=== PATIENT | female | born 1985 | race Caucasian/White ===

== ENCOUNTER 2025-08-17 17:15 | Emergency (ER) | payer OTHER, SELFPAY ==
[2025-08-17 17:24] VITALS: BP 128/89
[2025-08-17 17:48] LABS: Hematocrit 35.3 % (37.0-47.0); Hemoglobin 11.1 g/dL (12.0-16.0); Mean Corp Hgb Conc. 31.4 g/dL (33.0-37.0); Mean Corpuscular Volume 72.5 fL (81.0-99.0); Nucleated Red Blood Cells % 0 %; Platelet Count 229 10^3/uL (130-400); Red Cell Dist. Width 17.3 % (11.5-14.5)
[2025-08-17 18:01] LABS: HCG, Serum Qualitative Screen Negative
[2025-08-17 18:08] LABS: Troponin I < 0.012 ng/ml
[2025-08-17 18:10] LABS: ALT (SGPT) 13 U/L (0-35); AST (SGOT) 20 U/L (14-36); Albumin 3.8 g/dl (3.5-5.0); Alkaline Phosphatase 44 U/L (38-126); Blood Urea Nitrogen 6 mg/dl (7-17); Calcium 8.7 mg/dl (8.4-10.2); Carbon Dioxide 24 mmol/L (22-30); Chloride 105 mmol/L (98-107); Glucose 98 mg/dl (70-99); Lipase 99 U/L (23-300); Potassium 4.1 mmol/L (3.5-5.1); Sodium 133 mmol/L (135-145); Total Protein 6.9 g/dl (6.3-8.2); eGFR > 60.00
[2025-08-17 19:50] LABS: Urine Character Clear (Clear)
[2025-08-17 20:02] LABS: Urine Red Blood Cell 30-40 /HPF (0-2); Urine White Cell 0-2 /HPF (0-5)
[2025-08-17] MEDS: ZOFRAN 4 MG IV (20:47)
[2025-08-17] MEDS: NSS 1000 IV (20:48)
[2025-08-17 20:52] VITALS: BMI 26.9
[2025-08-17 20:55] VITALS: BP 103/62
[2025-08-17 21:13] LABS: COVID-19 Antigen Negative (Negative)
--- NOTE | 2025-08-17 23:24 | ED.GENMED ---
History of Present Illness
<Bekcy Diaz NP - Last Filed: 08/19/25 16:58>
General
Chief Complaint: Abdominal Symptoms
Source: patient
Exam Limitations: none
Time Seen by Provider: 08/17/25 19:29
Nursing documentation reviewed up to this point in time: agreed with
History of Present Illness
History of Present Illness:
Patient to the emergency department with complaint of lower abdominal pain and diarrhea. States her symptoms started approximately 1 week ago. She reports some improvement over the following days however last night her symptoms returned. She
denies fever or chills but reports night sweats and bodyaches. Brought to the emergency department by family for evaluation.
Past History
<Becky Diaz NP - Last Filed: 08/19/25 16:58>
Past History
ED Past Medical History: None
ED Past Surgical History: None
Social History
Tobacco: Non-smoker (Hygienist)
Alcohol: None
Drug: None
Personal:
Living: with family
Employment: Employed
Family History
Family History: Negative Early CAD
Review of Systems
<Becky Diaz NP - Last Filed: 08/19/25 16:58>
Review of Systems
Allergies reviewed?: Yes
All Other Systems: ROS reviewed and negative except as documented in HPI and ROS
Constitutional: Reports no symptoms
EENT: Reports no symptoms
Respiratory: Reports no symptoms
Cardiac: Reports no symptoms
ABD/GI: Reports abdominal pain, nausea and diarrhea
: Reports no symptoms
Musculoskeletal: Reports no symptoms
Skin: Reports no symptoms
Neurological: Reports weakness
Psychiatric: Reports no symptoms
Phy Exam
<Becky Diaz NP - Last Filed: 08/19/25 16:58>
General Physical Exam
General Presentation: mild distress
General age: appears stated age
General Skin: warm and dry
General Habitus: normal
Pulmonary Exam
Pulmonary Exam: lungs clear and no respiratory distress
Gastrointestinal Exam
Gastrointestinal Exam: normal bowel sounds, non tender, soft, no organomegaly, non distended and no cva tenderness
Musculoskeletal Exam
Musculoskeletal Exam: full ROM and neuro vasc intact
Skin Exam
Skin Exam: normal color, warm/dry and no rash
Psychiatric Exam
Psychiatric Exam: normal mood/affect
Course
<Becky Diaz NP - Last Filed: 08/19/25 16:58>
Orders/Labs/Results
Orders:
Orders
08/17/25 17:28
EKG [Electrocardiogram (*1)] Urgent
Reason for Study: Tachycardia
08/17/25 17:29
EKG- Treatment ONCE
Test Result ONCE
08/17/25 17:37
Complete Blood Count/With Diff Urgent
Comprehensive Metabolic Panel Urgent
HCG, Serum Qualitative Screen Urgent
Lipase Urgent
Troponin I Urgent
08/17/25 19:25
Urinalysis Reflex To Culture Urgent
Date Specimen was Collected: 08/17/25
Time Specimen was Collected: 17:28
Urine Microscopic Reflex Cult Urgent
08/17/25 19:42
CT Abd/pelvis W Iv Cont Urgent
Comment:
Reason For Exam: lower abd. pain
0.9% Sodium Chloride 1000 ml [Nss] 1,000 ml IV BOLUS
08/17/25 20:40
COVID-19 Antigen Urgent
Source: Nasal Swab
Influenza A+B Rapid Molecular Urgent
[facility] Source: Nasal Swab
Specimen Description:
08/17/25 20:46
Ondansetron Injectable [Zofran] 4 mg IV NOW STA
08/17/25 20:47
Ondansetron Injectable [Zofran] 4 mg .ROUTE .STK-MED ONE
08/17/25 21:46
STOOL [C difficile Antigen & Toxins] Urgent
[facility] Source: Feces/Stool
Specimen Description:
Date Specimen was Collected: 08/17/25
Time Specimen was Collected: 20:40
Stool Culture Urgent
[facility] Source: Feces/Stool
Specimen Description:
Date Specimen was Collected: 08/17/25
Time Specimen was Collected: 21:44
Abnormal Lab Results
08/17/25 08/17/25
17:37 19:25
Hgb 11.1 L g/dL
(12.0-16.0)
Hct 35.3 L %
(37.0-47.0)
MCV 72.5 L fL
(81.0-99.0)
MCH 22.8 L pg
(27.0-31.0)
MCHC 31.4 L g/dL
(33.0-37.0)
RDW 17.3 H %
(11.5-14.5)
Absolute Lymphs (auto) 1.1 L 10^3/uL
(1.2-3.4)
Absolute Monos (auto) 1.0 H 10^3/uL
(0.1-0.6)
Lymphocytes % 14.6 L %
(20.5-51.1)
Monocytes % 12.4 H %
(1.7-9.3)
Sodium 133 L mmol/L
(135-145)
BUN 6 L mg/dl
(7-17)
Ur Occult Blood Reflex 4+ A
(Negative)
Urine RBC 30-40 A /HPF
(0-2)
08/17/25 17:37
08/17/25 17:37
Vital Signs
Initial and Last Documented VS:
Initial Vital Signs
Temp Pulse Resp BP Pulse Ox
99.2 F 90 18 128/89 97
08/17/25 17:24 08/17/25 17:24 08/17/25 17:24 08/17/25 17:24 08/17/25 17:24
Last Documented Vital Signs
Temp Pulse Resp BP Pulse Ox
99.2 F 69 18 103/62 97
08/17/25 17:24 08/17/25 20:55 08/17/25 20:55 08/17/25 20:55 08/17/25 23:26
<Eliel Waters PA-C - Last Filed: 08/20/25 13:59>
Orders/Labs/Results
Orders:
Orders
08/17/25 17:28
EKG [Electrocardiogram (*1)] Urgent
Reason for Study: Tachycardia
08/17/25 17:29
EKG- Treatment ONCE
Test Result ONCE
08/17/25 17:37
Complete Blood Count/With Diff Urgent
Comprehensive Metabolic Panel Urgent
HCG, Serum Qualitative Screen Urgent
Lipase Urgent
Troponin I Urgent
08/17/25 19:25
Urinalysis Reflex To Culture Urgent
Date Specimen was Collected: 08/17/25
Time Specimen was Collected: 17:28
Urine Microscopic Reflex Cult Urgent
08/17/25 19:42
CT Abd/pelvis W Iv Cont Urgent
Comment:
Reason For Exam: lower abd. pain
0.9% Sodium Chloride 1000 ml [Nss] 1,000 ml IV BOLUS
08/17/25 20:40
COVID-19 Antigen Urgent
Source: Nasal Swab
Influenza A+B Rapid Molecular Urgent
[facility] Source: Nasal Swab
Specimen Description:
08/17/25 20:46
Ondansetron Injectable [Zofran] 4 mg IV NOW STA
08/17/25 20:47
Ondansetron Injectable [Zofran] 4 mg .ROUTE .K-MED ONE
08/17/25 21:46
STOOL [C difficile Antigen & Toxins] Urgent
[facility] Source: Feces/Stool
Specimen Description:
Date Specimen was Collected: 08/17/25
Time Specimen was Collected: 20:40
Stool Culture Urgent
[facility] Source: Feces/Stool
Specimen Description:
Date Specimen was Collected: 08/17/25
Time Specimen was Collected: 21:44
Abnormal Lab Results
08/17/25 08/17/25
17:37 19:25
Hgb 11.1 L g/dL
(12.0-16.0)
Hct 35.3 L %
(37.0-47.0)
MCV 72.5 L fL
(81.0-99.0)
MCH 22.8 L pg
(27.0-31.0)
MCHC 31.4 L g/dL
(33.0-37.0)
RDW 17.3 H %
(11.5-14.5)
Absolute Lymphs (auto) 1.1 L 10^3/uL
(1.2-3.4)
Absolute Monos (auto) 1.0 H 10^3/uL
(0.1-0.6)
Lymphocytes % 14.6 L %
(20.5-51.1)
Monocytes % 12.4 H %
(1.7-9.3)
Sodium 133 L mmol/L
(135-145)
BUN 6 L mg/dl
(7-17)
Ur Occult Blood Reflex 4+ A
(Negative)
Urine RBC 30-40 A /HPF
(0-2)
08/17/25 17:37
08/17/25 17:37
Vital Signs
Initial and Last Documented VS:
Initial Vital Signs
Temp Pulse Resp BP Pulse Ox
99.2 F 90 18 128/89 97
08/17/25 17:24 08/17/25 17:24 08/17/25 17:24 08/17/25 17:24 08/17/25 17:24
Last Documented Vital Signs
Temp Pulse Resp BP Pulse Ox
99.2 F 69 18 103/62 97
08/17/25 17:24 08/17/25 20:55 08/17/25 20:55 08/17/25 20:55 08/17/25 23:26
<Becky Diaz NP - Last Filed: 08/19/25 16:58>
*Radiology
Radiology exam reviewed: radiology read reviewed
*Pulse Oximetry
SaO2: 97
Oxygen Mode of Delivery: Room air
Patient hypoxic: no
*Critical Care Note
Total Time (30-74mins, 75-104mins- exclusive of procedures): Not Applicable
<Becky Diaz NP - Last Filed: 08/19/25 16:58>
Update Note
Update Note:
Patient to emergency department with complaint of lower abdominal pain and diarrhea. She states symptoms started approximately 1 week ago, started to improve, and then worsened again. She denies any fever or chills. On arrival to the ED vital
signs are stable and she has remained afebrile. Labs reviewed. WBC 7.7. Sodium 133. UA negative for evidence of UTI. Stool cultures were obtained, results are pending. CT of abdomen pelvis was completed. Findings suspicious for nonspecific
mild colitis. Discussed these findings with her. Recommend continuing clear liquid diet over the next 24 hours. Slowly advancing her diet as tolerated. She will be discharged home and will follow-up with her family doctor in AM. She was given
instructions on signs and symptoms to return to the emergency department and she is agreeable to this plan.
<Eliel Waters PA-C - Last Filed: 08/20/25 13:59>
Update Note
Update Note:
Patient to emergency department with complaint of lower abdominal pain and diarrhea. She states symptoms started approximately 1 week ago, started to improve, and then worsened again. She denies any fever or chills. On arrival to the ED vital
signs are stable and she has remained afebrile. Labs reviewed. WBC 7.7. Sodium 133. UA negative for evidence of UTI. Stool cultures were obtained, results are pending. CT of abdomen pelvis was completed. Findings suspicious for nonspecific
mild colitis. Discussed these findings with her. Recommend continuing clear liquid diet over the next 24 hours. Slowly advancing her diet as tolerated. She will be discharged home and will follow-up with her family doctor in AM. She was given
instructions on signs and symptoms to return to the emergency department and she is agreeable to this plan.
08/20/2025 1358: Called pt and left message regarding positive stool campylobacter
ED Attending Note
<Becky Diaz NP - Last Filed: 08/19/25 16:58>
-
Portions of this chart may have been created with voice recognition software.� Occasional wrong word or��sound alike� substitutions may have occurred due to the inherent limitations of voice recognition software.
Discharge Plan
Departure
Patient Disposition: Home (Routine Discharge)
Date of Disposition: 08/17/25
Time of Disposition: 22:18
Patient with high blood pressure during this ER visit?: No
Condition: Good
Covid-19: Not Applicable
Discharge Problem:
Colitis
Instructions: Diarrhea in teens and adults, Clear Liquid Diet, Dehydration, Adult (DC), Abdominal Pain
Prescriptions:
New
ondansetron 4 mg tablet,disintegrating
4 mg PO Q4H PRN (Reason: nausea and vomiting) Qty: 12 0RF
No Action
acetaminophen 325 MG tablet
650 mg PO Q4HPRN PRN (Reason: mild pain/PATTON/temp> 100.4F) 0RF
ferrous sulfate [FeroSul] 325 MG tablet
325 mg PO BID 0RF
docusate sodium 100 MG capsule
100 mg PO BID 0RF
omeprazole magnesium [Prilosec OTC] 20 MG tablet,delayed release (DR/EC)
20 mg PO DAILY Qty: 30 0RF
ibuprofen 600 MG tablet
600 mg PO Q6HPRN PRN (Reason: pain) Qty: 20 0RF
ondansetron 4 MG tablet,disintegrating
4 mg PO TIDPRN PRN (Reason: nausea/vomiting) Qty: 10 0RF
Referrals:
Hudson Miller MD [Family Provider, General]
Activity Restrictions/Additional Instructions:
Follow-up with your family doctor in 2 to 3 days. Return to the emergency department for any changes in/worsening of your symptoms.
Interventions
Interventions:
*Risk Screen - Suicide Last Done: 08/17/25 17:24
*General Assessment Last Done: 08/17/25 17:24
*Neglect/Abuse Screening Last Done: 08/17/25 17:24
*ED COVID-19 Vaccine History Last Done: 08/17/25 17:24
*ED Influenza Vaccine History Last Done: 08/17/25 17:24
*Nursing Disposition Last Done: 08/17/25 23:12
[facility]-Hpqiat-Dmbvnfpkob Assessment Last Done: 08/17/25 20:52
Discharge Date and Time
Discharge Date/Time: 08/17/25 23:12
Print Language: TUVAL[place]
== END 2025-08-17 23:12 | disposition home or self-care (01) ==
LOC: EMR 17:15
PROVIDERS: Nurse Practitioner; EMERGENCY PHYSICIAN Emergency Medicine; FAMILY PHYSICIAN Internal Medicine
DX: K52.9 Noninfective gastroenteritis and colitis, unspecified (principal)
CPT/HCPCS: 99284; 96374; 96361; 74177; 80053; 81003; 81015; 83690; 84484; 84703; 85025; 87045; 87046; 87324; 87427; 87449; 87502; 87811; 93005; Q9967